=== PATIENT | male | born 1995 | race Caucasian/White ===

== ENCOUNTER 2019-04-04 16:32 | Emergency (ER) | payer MEDICAID ==
[2019-04-04] MEDS: IBUPROFEN 600 MG TAB PO (18:12)
== END 2019-04-04 19:21 | disposition home or self-care (01) ==
LOC: FTE 16:32
DX: S52.124A Nondisplaced fracture of head of right radius, initial encounter for closed fracture (principal); V00.131A Fall from skateboard, initial encounter
CPT/HCPCS: 29105; 73080-RT; 73090-RT; 99283-25